=== PATIENT | male | born 1945 | race Caucasian/White ===

== ENCOUNTER 2017-10-10 10:11 | Emergency (ER) | payer MEDICARE, MEDICAID ==
[~2017-10-10] VITALS: Ht 170.2 cm; Wt 82.1 kg
[2017-10-10] MEDS ORDERED: SODIUM CHLORIDE 0.9% 1,000 ML IV ONE (10:43)
[2017-10-10] MEDS ORDERED: PROMETHAZINE HCL 25 MG/ML 1ML IV PRN (10:45)
[2017-10-10] MEDS ORDERED: HYDROmorphone HCL 2 MG/ML VL IV ONE (10:45)
[2017-10-10] MEDS ORDERED: DILTIAZEM HCL 25 MG/5 ML VIAL IV ONE ×2 (11:00→16:15)
[2017-10-10 11:03] LABS: Basophils # (auto) 0 uL; Eosinophils # (auto) 0.1 uL; Hemoglobin 8.2 g/dL (13.5-17.5); Lymphocytes # (auto) 1.3 uL; Mean Platelet Volume 6.6 fL (6.9-10.8); Monocytes # (auto) 0.6 uL; Neutrophils # (auto) 4.3 uL; White Blood Cell 6.3 10^3/uL (4.4-10.8)
[2017-10-10 11:05] LABS: Basophils % (auto) 0.5 % (0.0-2.0); Eosinophils % (auto) 1.5 % (0.0-7.0); Hematocrit 26.5 % (41.0-53.0); Lymphocytes % (auto) 20.9 % (10.0-50.0); Mean Corpuscular Hemoglobin 22.1 pg (28.0-32.0); Mean Corpuscular Hgb Conc. 31.1 g/dL (32.0-36.0); Mean Corpuscular Volume 71.2 fL (80.0-100.0); Monocytes % (auto) 9.6 % (0.0-12.0); Neutrophils % (auto) 67.5 % (37.0-80.0); Platelet Count (auto) 319 10^3/uL (140-450)
[2017-10-10 11:08] LABS: Red Cell Distribution Width 20.8 % (11.8-14.3)
[2017-10-10 11:17] LABS: INR 1.15 (0.9-1.15); Partial Thromboplastin Time 30.2 sec (22.64-33.71); Prothrombin Time 12.6 sec (9.37-12.3)
[2017-10-10 11:22] LABS: Albumin 2.2 g/dL (3.4-5.0); BUN/Creatinine Ratio 22.9; Bilirubin, Total 0.2 mg/dL (0.2-1.0); Calcium 7.6 mg/dL (8.5-10.1); Magnesium 1.6 mg/dL (1.6-2.6); Potassium 4.6 mmol/L (3.5-5.1); Total Protein 5.8 g/dL (6.4-8.2)
[2017-10-10 13:13] LABS: Anisocytosis Slight; Ovalocytes FEW; Platelet Estimate Adequate; Stomatocytes Few
[2017-10-10] MEDS ORDERED: SODIUM CHLORIDE 0.9% 1,000 ML IV SCH (17:48)
[2017-10-10] MEDS ORDERED: IPRATROPIUM BROM 0.5 MG/2.5ML INH SOL NEB SCH (18:00)
[2017-10-10] MEDS ORDERED: HYOSCYAMINE SULF 0.125 MG TAB PO PRN (18:00)
[2017-10-10] MEDS ORDERED: DOCUSATE SOD 100 MG CAP PO PRN (18:00)
[2017-10-10] MEDS ORDERED: HYDROmorphone HCL 2 MG/ML VL IV PRN (18:00)
[2017-10-10] MEDS ORDERED: ALBUTEROL SULF 2.5 MG/0.5ML(0.5%) NEB SOLN NEB SCH (18:00)
[2017-10-10] MEDS ORDERED: TORSEMIDE 20 MG TAB PO SCH (18:00)
[2017-10-10] MEDS ORDERED: NITROGLYCERIN 0.4 MG SL TAB SL PRN (18:00)
[2017-10-10] MEDS ORDERED: TAMSULOSIN HYDROCHLORIDE 0.4 MG CAP PO SCH (18:00)
[2017-10-10] MEDS ORDERED: ALPRAZolam 0.25 MG TAB PO PRN (18:00)
[2017-10-10] MEDS ORDERED: ONDANSETRON HCL 4 MG/2 ML VIAL IV PRN (18:00)
[2017-10-10] MEDS ORDERED: TEMAZEPAM 15 MG CAP PO PRN (18:00)
[2017-10-10] MEDS ORDERED: KETOROLAC TROMETH 30 MG/ML 1ML VIAL IV PRN (18:15)
[2017-10-10] MEDS ORDERED: BACLOFEN 10 MG TAB PO PRN (18:15)
[2017-10-10 19:07] VITALS: BP 137/68
[2017-10-10] MEDS ORDERED: busPIRone HCL 10 MG TAB PO SCH (22:00)
[2017-10-10] MEDS ORDERED: FAMOTIDINE 20 MG TAB PO SCH (22:00)
[2017-10-10] MEDS ORDERED: BUDESONIDE (INHALATION) 0.5 MG/2 ML NEB NEB SCH (22:00)
[2017-10-10] MEDS ORDERED: VENLAFAXINE HCL 37.5MG TABLET PO SCH (22:00)
[2017-10-10] MEDS ORDERED: MORPHINE SULF 30 mg ER tab PO SCH (22:00)
[2017-10-10] MEDS ORDERED: COLCHICINE 0.6 MG CAP PO SCH (22:00)
[2017-10-10] MEDS ORDERED: DICYCLOMINE HCL 10 MG CAP PO SCH (22:00)
[2017-10-10] MEDS ORDERED: PANTOPRAZOLE 40 MG TAB PO SCH (22:00)
[2017-10-11] MEDS ORDERED: MULTIPLE VITAMIN TAB PO SCH (10:00)
[2017-10-11] MEDS ORDERED: POTASSIUM CHL 20 Meq TABLET PO SCH (10:00)
== END 2017-10-10 20:35 | disposition left against medical advice (07) ==
LOC: ER 10:11 → TELE 10:12 → UNDOADMIN 10:12 → ER 20:35
DX: K57.30 Diverticulosis of large intestine without perforation or abscess without bleeding (principal); I47.1 Supraventricular tachycardia; D50.8 Other iron deficiency anemias; J45.909 Unspecified asthma, uncomplicated; E11.21 Type 2 diabetes mellitus with diabetic nephropathy; I25.810 Atherosclerosis of coronary artery bypass graft(s) without angina pectoris; I25.2 Old myocardial infarction; F17.200 Nicotine dependence, unspecified, uncomplicated; E43 Unspecified severe protein-calorie malnutrition; Z68.28 Body mass index [BMI] 28.0-28.9, adult; Z88.6 Allergy status to analgesic agent
CPT/HCPCS: 36415; 71020; 74176; 80053; 83690; 83735; 84443; 84484; 85025; 85610; 85730; 93005; 94761; 96361; 96374; 96375; 99285; J1170; J2550; J7030

== ENCOUNTER 2017-11-28 23:38 | Inpatient (IN) | payer MEDICARE, MEDICAID ==
[~2017-11-28] VITALS: Ht 177.8 cm; Wt 82.0 kg
[2017-11-28] MEDS: MIDAZOLAM DRIP 50 mg/50mL 50 ML IV SCH (23:56)
[2017-11-29] VITALS (37 sets, daily range): BP systolic 84–128; BP diastolic 48–88
[2017-11-29] MEDS ORDERED: PROPOFOL 100 ML IV ONE (00:04)
[2017-11-29] MEDS: PROPOFOL 100 ML IV SCH (00:07)
[2017-11-29 00:23] LABS: Basophils # (auto) 0 uL; Basophils % (auto) 0.3 % (0.0-2.0); Eosinophils # (auto) 0.1 uL; Hemoglobin 9.5 g/dL (13.5-17.5); Mean Corpuscular Hgb Conc. 29.8 g/dL (32.0-36.0); Nucleated Red Blood Cells % 0.1 %
[2017-11-29 00:24] LABS: Eosinophils % (auto) 1.1 % (0.0-7.0); Hematocrit 31.8 % (41.0-53.0); Lymphocytes # (auto) 3.6 uL; Mean Corpuscular Hemoglobin 22.2 pg (28.0-32.0); Mean Corpuscular Volume 74.4 fL (80.0-100.0); Monocytes # (auto) 0.8 uL; Monocytes % (auto) 7.3 % (0.0-12.0); Neutrophils # (auto) 5.9 uL; Neutrophils % (auto) 56.3 % (37.0-80.0); Platelet Count (auto) 535 10^3/uL (140-450); Red Blood Cells 4.27 10^6/uL (4.5-5.90); White Blood Cell 10.4 10^3/uL (4.4-10.8)
[2017-11-29] MEDS ORDERED: ETOMIDATE (2MG/ML) 20ML VIAL IV ONE (00:30)
[2017-11-29] MEDS ORDERED: SUCCINYLCHOLINE CHLORIDE 20 MG/ML 10ML VIAL IV ONE (00:30)
[2017-11-29] MEDS ORDERED: ROCURONIUM 10MG/ML 10ML VIAL IV ONE (00:45)
[2017-11-29 00:48] LABS: Albumin 1.9 g/dL (3.4-5.0); BUN/Creatinine Ratio 21.3; Calcium 7.4 mg/dL (8.5-10.1); Magnesium 1.7 mg/dL (1.6-2.6); Potassium 4.5 mmol/L (3.5-5.1)
[2017-11-29 00:53] LABS: Bilirubin, Total 0.4 mg/dL (0.2-1.0); Lactic Acid w/Reflex 3.9 mmol/L (0.4-2.0); Red Cell Distribution Width 21.2 % (11.8-14.3); Total Protein 6.2 g/dL (6.4-8.2)
[2017-11-29] MEDS ORDERED: LORazepam 2MG/ML-1ML VIAL IV ONE (01:45)
[2017-11-29] MEDS ORDERED: MORPHINE SULFATE 4 MG/ML SYR/VIAL IV ONE (01:45)
[2017-11-29] MEDS ORDERED: VANCOMYCIN 1GM/250ML 250 ML IV ONE (03:00)
[2017-11-29] MEDS ORDERED: cefTRIAXone 1GM/10ml IVPUSH 10 ML IV ONE (03:00)
[2017-11-29] MEDS ORDERED: FUROSEMIDE 20 MG/2 ML VIAL IV ONE (04:00)
[2017-11-29 04:17] LABS: Urine Bacteria NONE SEEN /hpf (None Seen); Urine Blood Negative /uL (Negative); Urine Mucus FEW (None Seen); Urine Specific Gravity 1.022 (1.001-1.035); Urine WBC 2 /hpf (0 - 3)
[2017-11-29] MEDS ORDERED: NITROGLYCERIN 0.4 MG SL TAB SL PRN (04:30)
[2017-11-29] MEDS ORDERED: MORPHINE SULFATE 4 MG/ML SYR/VIAL IV PRN (04:30)
[2017-11-29] MEDS ORDERED: VANCOMYCIN PER PHARMACY 0 MG IV SCH (06:15)
[2017-11-29] MEDS ORDERED: methylPREDNISolone SOD SUCC 125 MG/2 ML VL IV ONE (06:15)
[2017-11-29] MEDS: PANTOPRAZOLE 40 MG/10 ML VIAL IV SCH ×2 (09:58→10:27)
[2017-11-29] MEDS ORDERED: ENOXAPARIN SOD 30 MG/0.3 ML SYRINGE SC SCH (10:00)
[2017-11-29] MEDS: VANCOMYCIN 1,250 MG in D5W 5% 250 ML IV SCH (10:40)
[2017-11-29] MEDS ORDERED: HEPARIN DRIP/D5W 100UNITS/ML 250 ML IV SCH (10:48)
[2017-11-29] MEDS ORDERED: HEPARIN SODIUM (PORCINE) 5000 UNITS/ML 1ML VIAL IV ONE (11:00)
[2017-11-29 11:23] LABS: Basophils # (auto) 0 uL; Basophils % (auto) 0.2 % (0.0-2.0); Eosinophils # (auto) 0 uL; Lymphocytes # (auto) 0.5 uL; Monocytes # (auto) 0.1 uL; Neutrophils # (auto) 2.5 uL; Red Cell Distribution Width 21.2 % (11.8-14.3); White Blood Cell 3.1 10^3/uL (4.4-10.8)
[2017-11-29 11:25] LABS: Eosinophils % (auto) 0.2 % (0.0-7.0); Hematocrit 24.6 % (41.0-53.0); Hemoglobin 7.6 g/dL (13.5-17.5); Lymphocytes % (auto) 17.4 % (10.0-50.0); Mean Corpuscular Hemoglobin 21.9 pg (28.0-32.0); Mean Corpuscular Hgb Conc. 30.7 g/dL (32.0-36.0); Monocytes % (auto) 3.2 % (0.0-12.0); Platelet Count (auto) 320 10^3/uL (140-450); Red Blood Cells 3.45 10^6/uL (4.5-5.90)
[2017-11-29 11:34] LABS: Mean Corpuscular Volume 71.4 fL (80.0-100.0)
[2017-11-29 11:43] LABS: Albumin 1.6 g/dL (3.4-5.0); BUN/Creatinine Ratio 22.5; Bilirubin, Total 0.3 mg/dL (0.2-1.0); Calcium 7.1 mg/dL (8.5-10.1); INR 1.18 (0.9-1.15); Partial Thromboplastin Time 33.4 sec (22.64-33.71); Potassium 3.7 mmol/L (3.5-5.1); Prothrombin Time 12.9 sec (9.37-12.3); Total Protein 5.1 g/dL (6.4-8.2)
[2017-11-29] MEDS: HEPARIN DRIP/D5W 100UNITS/ML 250 ML IV SCH (12:45)
[2017-11-29] MEDS: PIPERACILLIN-TAZOB 3.375GM 50 ML IV SCH ×3 (13:19→23:43)
[2017-11-29] MEDS: FUROSEMIDE 40 MG/4 ML VIAL IV SCH (13:21)
[2017-11-29] MEDS ORDERED: MIDAZOLAM DRIP 50 mg/50mL 50 ML IV ONE (14:42)
[2017-11-29 17:52] LABS: Basophils # (auto) 0 uL; Basophils % (auto) 0.1 % (0.0-2.0); Eosinophils # (auto) 0 uL; Hemoglobin 8.6 g/dL (13.5-17.5); Mean Corpuscular Volume 71.3 fL (80.0-100.0); Monocytes # (auto) 0.1 uL; White Blood Cell 3.3 10^3/uL (4.4-10.8)
[2017-11-29 17:54] LABS: Hematocrit 27.8 % (41.0-53.0); Lymphocytes % (auto) 28.8 % (10.0-50.0); Mean Corpuscular Hemoglobin 22.2 pg (28.0-32.0); Mean Corpuscular Hgb Conc. 31.1 g/dL (32.0-36.0); Monocytes % (auto) 3.5 % (0.0-12.0); Neutrophils # (auto) 2.2 uL; Neutrophils % (auto) 67.6 % (37.0-80.0); Platelet Count (auto) 409 10^3/uL (140-450)
[2017-11-29 17:59] LABS: Red Cell Distribution Width 20.5 % (11.8-14.3)
[2017-11-29 18:12] LABS: Albumin 1.7 g/dL (3.4-5.0); BUN/Creatinine Ratio 19.7; Calcium 7.5 mg/dL (8.5-10.1); Potassium 3.5 mmol/L (3.5-5.1)
[2017-11-29 18:15] LABS: Bilirubin, Total 0.3 mg/dL (0.2-1.0); Total Protein 5.7 g/dL (6.4-8.2)
[2017-11-29] MEDS: MIDAZOLAM DRIP 50 mg/50mL 50 ML IV SCH (18:50)
[2017-11-29] MEDS: ALBUTEROL SULF 2.5 MG/0.5ML(0.5%) NEB SOLN NEB SCH (19:15)
[2017-11-29] MEDS: IPRATROPIUM BROM 0.5 MG/2.5ML INH SOL NEB SCH (19:16)
[2017-11-29 20:44] LABS: INR 1.16 (0.9-1.15); Prothrombin Time 12.7 sec (9.37-12.3)
[2017-11-29] MEDS ORDERED: NOREPINEPHRINE 8 MG/250ML KIT 250 ML IV ONE (22:59)
[2017-11-29] MEDS: NOREPINEPHRINE 8 MG/250ML KIT 250 ML IV SCH ×2 (23:12→23:15)
[2017-11-30] VITALS (102 sets, daily range): BP systolic 84–140; BP diastolic 38–102
[2017-11-30] MEDS: PROPOFOL 100 ML IV SCH ×2 (00:29→08:33)
[2017-11-30] MEDS: ALBUTEROL SULF 2.5 MG/0.5ML(0.5%) NEB SOLN NEB SCH ×4 (00:39→18:08)
[2017-11-30] MEDS: IPRATROPIUM BROM 0.5 MG/2.5ML INH SOL NEB SCH ×4 (00:39→18:08)
[2017-11-30] MEDS ORDERED: AMIODARONE HCL 900 MG IV ONE (01:38)
[2017-11-30] MEDS ORDERED: AMIODARONE HCL (50 MG/ ML) 3 ML VIAL IV ONE (01:38)
[2017-11-30] MEDS ORDERED: AMIODARONE HCL 900 MG in DEXTROSE 500 ML IV SCH ×2 (01:49→07:49)
[2017-11-30 02:29] LABS: Basophils # (auto) 0 uL; Basophils % (auto) 0.2 % (0.0-2.0); Eosinophils # (auto) 0 uL; Eosinophils % (auto) 0.1 % (0.0-7.0); Hematocrit 28.9 % (41.0-53.0); Monocytes # (auto) 0.8 uL; Nucleated Red Blood Cells % 0.1 %; Red Blood Cells 3.84 10^6/uL (4.5-5.90); White Blood Cell 8.1 10^3/uL (4.4-10.8)
[2017-11-30 02:31] LABS: Hemoglobin 8.6 g/dL (13.5-17.5); Lymphocytes # (auto) 2.1 uL; Lymphocytes % (auto) 26.2 % (10.0-50.0); Mean Corpuscular Hemoglobin 22.3 pg (28.0-32.0); Mean Corpuscular Hgb Conc. 29.6 g/dL (32.0-36.0); Mean Corpuscular Volume 75.3 fL (80.0-100.0); Monocytes % (auto) 9.7 % (0.0-12.0); Neutrophils # (auto) 5.2 uL; Neutrophils % (auto) 63.8 % (37.0-80.0); Platelet Count (auto) 465 10^3/uL (140-450)
[2017-11-30 02:40] LABS: Red Cell Distribution Width 21.6 % (11.8-14.3)
[2017-11-30 02:48] LABS: Albumin 1.4 g/dL (3.4-5.0); Calcium 6.5 mg/dL (8.5-10.1); Potassium 3.3 mmol/L (3.5-5.1)
[2017-11-30 02:49] LABS: BUN/Creatinine Ratio 14.2
[2017-11-30 03:11] LABS: INR 3.48 (0.9-1.15)
[2017-11-30 03:19] LABS: Bilirubin, Total 0.3 mg/dL (0.2-1.0); Total Protein 4.8 g/dL (6.4-8.2)
[2017-11-30 04:17] LABS: Partial Thromboplastin Time > 170.00 sec (22.64-33.71)
[2017-11-30] MEDS: PIPERACILLIN-TAZOB 3.375GM 50 ML IV SCH ×3 (06:06→17:56)
[2017-11-30] MEDS: MIDAZOLAM DRIP 50 mg/50mL 50 ML IV SCH ×2 (08:00→14:24)
[2017-11-30] MEDS ORDERED: DEXTROSE (50%) 50ML SYRG IV PRN (08:45)
[2017-11-30] MEDS: VANCOMYCIN 1,250 MG in D5W 5% 250 ML IV SCH (10:00)
[2017-11-30] MEDS: FUROSEMIDE 40 MG/4 ML VIAL IV SCH (10:00)
[2017-11-30] MEDS: PANTOPRAZOLE 40 MG/10 ML VIAL IV SCH ×2 (10:00)
[2017-11-30] MEDS: HEPARIN DRIP/D5W 100UNITS/ML 250 ML IV SCH ×3 (10:51→17:00)
[2017-11-30 11:12] LABS: INR 1.16 (0.9-1.15); Partial Thromboplastin Time 36.1 sec (22.64-33.71); Prothrombin Time 12.7 sec (9.37-12.3)
[2017-11-30] MEDS: ACCU-CHEK COMFORT CURVE STRIP VI SCH ×2 (11:57→17:56)
[2017-11-30] MEDS: InsuLIN REG 1unit/0.01ml Soln (100units/ml) SC SCH ×2 (11:57→17:56)
[2017-11-30] MEDS: fentaNYL Drip 2500mCg/250mlNS 250 ML IV SCH (14:31)
[2017-11-30] MEDS ORDERED: methylPREDNISolone SOD SUCC 40 MG/ML VL IV ONE (14:45)
[2017-11-30] MEDS ORDERED: Diabetisource AC 1 Liter GT SCH (14:45)
[2017-11-30] MEDS ORDERED: WARFARIN SODIUM 5 MG TAB PO ONE (17:00)
[2017-11-30] MEDS: BUDESONIDE (INHALATION) 0.5 MG/2 ML NEB NEB SCH (18:09)
[2017-11-30] MEDS: methylPREDNISolone SOD SUCC 40 MG/ML VL IV SCH (22:19)
[2017-11-30] MEDS: NOREPINEPHRINE 8 MG/250ML KIT 250 ML IV SCH (23:12)
[2017-12-01] VITALS (106 sets, daily range): BP systolic 94–170; BP diastolic 36–100
[2017-12-01] MEDS: InsuLIN REG 1unit/0.01ml Soln (100units/ml) SC SCH ×5 (00:18→23:49)
[2017-12-01] MEDS: PIPERACILLIN-TAZOB 3.375GM 50 ML IV SCH ×5 (00:18→23:49)
[2017-12-01] MEDS: ACCU-CHEK COMFORT CURVE STRIP VI SCH ×5 (00:18→23:49)
[2017-12-01] MEDS: IPRATROPIUM BROM 0.5 MG/2.5ML INH SOL NEB SCH ×4 (00:26→19:12)
[2017-12-01] MEDS: ALBUTEROL SULF 2.5 MG/0.5ML(0.5%) NEB SOLN NEB SCH ×4 (00:26→19:12)
[2017-12-01] MEDS: BUDESONIDE (INHALATION) 0.5 MG/2 ML NEB NEB SCH ×2 (05:48→19:12)
[2017-12-01 06:08] LABS: Basophils # (auto) 0 uL; Eosinophils # (auto) 0 uL; Hemoglobin 8.6 g/dL (13.5-17.5); Monocytes # (auto) 0.4 uL; Neutrophils # (auto) 4.8 uL
[2017-12-01 06:10] LABS: Basophils % (auto) 0.3 % (0.0-2.0); Hematocrit 27.4 % (41.0-53.0); Lymphocytes % (auto) 15.9 % (10.0-50.0); Mean Corpuscular Hemoglobin 22.4 pg (28.0-32.0); Mean Corpuscular Hgb Conc. 31.3 g/dL (32.0-36.0); Mean Corpuscular Volume 71.6 fL (80.0-100.0); Monocytes % (auto) 6.8 % (0.0-12.0); Platelet Count (auto) 388 10^3/uL (140-450); Red Blood Cells 3.83 10^6/uL (4.5-5.90); White Blood Cell 6.2 10^3/uL (4.4-10.8)
[2017-12-01 06:18] LABS: Red Cell Distribution Width 21.1 % (11.8-14.3)
[2017-12-01 06:23] LABS: Albumin 1.7 g/dL (3.4-5.0); BUN/Creatinine Ratio 13.9; Calcium 7.6 mg/dL (8.5-10.1); Potassium 3.1 mmol/L (3.5-5.1)
[2017-12-01 06:25] LABS: Bilirubin, Total 0.3 mg/dL (0.2-1.0); Total Protein 5.8 g/dL (6.4-8.2)
[2017-12-01 06:28] LABS: INR 1.17 (0.9-1.15); Prothrombin Time 12.8 sec (9.37-12.3)
[2017-12-01] MEDS: HEPARIN DRIP/D5W 100UNITS/ML 250 ML IV SCH (08:29)
[2017-12-01] MEDS: fentaNYL Drip 2500mCg/250mlNS 250 ML IV SCH (08:30)
[2017-12-01] MEDS: MIDAZOLAM DRIP 50 mg/50mL 50 ML IV SCH (08:34)
[2017-12-01] MEDS: PANTOPRAZOLE 40 MG/10 ML VIAL IV SCH (10:28)
[2017-12-01] MEDS: methylPREDNISolone SOD SUCC 40 MG/ML VL IV SCH ×2 (10:28→21:37)
[2017-12-01] MEDS: VANCOMYCIN 1,250 MG in D5W 5% 250 ML IV SCH (10:28)
[2017-12-01 12:11] LABS: INR 1.25 (0.9-1.15); Partial Thromboplastin Time 69.3 sec (22.64-33.71); Prothrombin Time 13.7 sec (9.37-12.3)
[2017-12-01] MEDS ORDERED: POTASSIUM CHL 10% (20 MEQ/15ML) 15ml ORAL SOLN GT ONE (15:30)
[2017-12-01] MEDS ORDERED: WARFARIN SODIUM 5 MG TAB PO ONE (17:00)
[2017-12-01] MEDS ORDERED: DILTIAZEM HCL 25 MG/5 ML VIAL IV ONE ×2 (20:54→21:00)
[2017-12-01] MEDS: NOREPINEPHRINE 8 MG/250ML KIT 250 ML IV SCH (23:12)
[2017-12-02] VITALS (97 sets, daily range): BP systolic 59–181; BP diastolic 31–118
[2017-12-02] MEDS: ALBUTEROL SULF 2.5 MG/0.5ML(0.5%) NEB SOLN NEB SCH ×4 (00:08→19:07)
[2017-12-02] MEDS: IPRATROPIUM BROM 0.5 MG/2.5ML INH SOL NEB SCH ×4 (00:08→19:07)
[2017-12-02] MEDS: PROPOFOL 100 ML IV SCH (00:29)
[2017-12-02 04:49] LABS: Eosinophils # (auto) 0 uL; Hemoglobin 9.5 g/dL (13.5-17.5); Mean Corpuscular Volume 70.6 fL (80.0-100.0)
[2017-12-02 04:51] LABS: Basophils # (auto) 0.3 uL; Basophils % (auto) 1.7 % (0.0-2.0); Hematocrit 30.2 % (41.0-53.0); Lymphocytes # (auto) 0.9 uL; Lymphocytes % (auto) 5.9 % (10.0-50.0); Mean Corpuscular Hemoglobin 22.2 pg (28.0-32.0); Mean Corpuscular Hgb Conc. 31.4 g/dL (32.0-36.0); Monocytes % (auto) 6.7 % (0.0-12.0); Neutrophils # (auto) 13.2 uL; Neutrophils % (auto) 85.7 % (37.0-80.0); Platelet Count (auto) 485 10^3/uL (140-450); Red Blood Cells 4.28 10^6/uL (4.5-5.90); Red Cell Distribution Width 21.2 % (11.8-14.3); White Blood Cell 15.3 10^3/uL (4.4-10.8)
[2017-12-02 05:00] LABS: Albumin 1.8 g/dL (3.4-5.0); BUN/Creatinine Ratio 15.4; Calcium 8.5 mg/dL (8.5-10.1); Potassium 3.5 mmol/L (3.5-5.1)
[2017-12-02 05:03] LABS: Bilirubin, Total 0.3 mg/dL (0.2-1.0); Total Protein 6.2 g/dL (6.4-8.2)
[2017-12-02] MEDS ORDERED: METOPROLOL TARTRATE 1MG/1ML-5ML VIAL IV ONE (05:03)
[2017-12-02 05:04] LABS: INR 1.2 (0.9-1.15); Prothrombin Time 13.1 sec (9.37-12.3)
[2017-12-02] MEDS: METOPROLOL TARTRATE 1MG/1ML-5ML VIAL IV SCH ×3 (05:07→18:44)
[2017-12-02] MEDS: InsuLIN REG 1unit/0.01ml Soln (100units/ml) SC SCH ×3 (06:00→17:34)
[2017-12-02] MEDS: PIPERACILLIN-TAZOB 3.375GM 50 ML IV SCH ×3 (06:00→17:34)
[2017-12-02] MEDS: ACCU-CHEK COMFORT CURVE STRIP VI SCH ×3 (06:00→17:34)
[2017-12-02] MEDS: NOREPINEPHRINE 8 MG/250ML KIT 250 ML IV SCH (06:45)
[2017-12-02] MEDS: BUDESONIDE (INHALATION) 0.5 MG/2 ML NEB NEB SCH ×2 (07:40→19:07)
[2017-12-02] MEDS ORDERED: VANCOMYCIN 1,250 MG in D5W 5% 250 ML IV SCH (10:00)
[2017-12-02] MEDS: PANTOPRAZOLE 40 MG/10 ML VIAL IV SCH (10:14)
[2017-12-02] MEDS: methylPREDNISolone SOD SUCC 40 MG/ML VL IV SCH ×2 (10:14→21:56)
[2017-12-02] MEDS: FREE WATER GT SCH ×3 (12:59→21:55)
[2017-12-02] MEDS: fentaNYL Drip 2500mCg/250mlNS 250 ML IV SCH (14:31)
[2017-12-02] MEDS ORDERED: WARFARIN SODIUM 5 MG TAB PO ONE (17:00)
[2017-12-03] VITALS (7 sets, daily range): BP systolic 83–141; BP diastolic 41–93
[2017-12-03] MEDS: InsuLIN REG 1unit/0.01ml Soln (100units/ml) SC SCH
[2017-12-03] MEDS: ACCU-CHEK COMFORT CURVE STRIP VI SCH
[2017-12-03] MEDS: PIPERACILLIN-TAZOB 3.375GM 50 ML IV SCH
[2017-12-03] MEDS: ALBUTEROL SULF 2.5 MG/0.5ML(0.5%) NEB SOLN NEB SCH (00:24)
[2017-12-03] MEDS: IPRATROPIUM BROM 0.5 MG/2.5ML INH SOL NEB SCH (00:24)
[2017-12-03] MEDS: PROPOFOL 100 ML IV SCH (00:29)
[2017-12-03] MEDS: MIDAZOLAM DRIP 50 mg/50mL 50 ML IV SCH (00:29)
[2017-12-03] MEDS: fentaNYL Drip 2500mCg/250mlNS 250 ML IV SCH (01:15)
[2017-12-03] MEDS ORDERED: VANCOMYCIN 1,250 MG in D5W 5% 250 ML IV SCH (02:00)
== END 2017-12-03 02:00 | disposition expired | DRG 871 ==
LOC: EDBD 23:38 → ER 23:42 → TELE 23:43 → ICU WEST 11-29 18:40
PROVIDERS: ADMIT Nurse Practitioner Family; ATTEND Internal Medicine
PROC: 02H633Z Insertion of Infusion Device into Right Atrium, Percutaneous Approach (ICD-10-PCS; 2017-11-28)
PROC: 5A1945Z Respiratory Ventilation, 24-96 Consecutive Hours (ICD-10-PCS; principal; 2017-11-29)
PROC: 0BH17EZ Insertion of Endotracheal Airway into Trachea, Via Natural or Artificial Opening (ICD-10-PCS; 2017-11-29)
DX: A41.9 Sepsis, unspecified organism (principal); I21.A1 Myocardial infarction type 2; G93.5 Compression of brain; I63.9 Cerebral infarction, unspecified; E43 Unspecified severe protein-calorie malnutrition; J96.01 Acute respiratory failure with hypoxia; R65.21 Severe sepsis with septic shock; I50.43 Acute on chronic combined systolic (congestive) and diastolic (congestive) heart failure; J18.9 Pneumonia, unspecified organism; D68.69 Other thrombophilia; E11.22 Type 2 diabetes mellitus with diabetic chronic kidney disease; J44.1 Chronic obstructive pulmonary disease with (acute) exacerbation; I13.0 Hypertensive heart and chronic kidney disease with heart failure and stage 1 through stage 4 chronic kidney disease, or unspecified chronic kidney disease; E87.1 Hypo-osmolality and hyponatremia; G96.0 Cerebrospinal fluid leak; J44.0 Chronic obstructive pulmonary disease with (acute) lower respiratory infection; Z66 Do not resuscitate; N18.3 Chronic kidney disease, stage 3 (moderate); D64.9 Anemia, unspecified; F17.210 Nicotine dependence, cigarettes, uncomplicated; F41.9 Anxiety disorder, unspecified; G89.29 Other chronic pain; M19.90 Unspecified osteoarthritis, unspecified site; I25.10 Atherosclerotic heart disease of native coronary artery without angina pectoris; I48.91 Unspecified atrial fibrillation; K21.9 Gastro-esophageal reflux disease without esophagitis; Z79.01 Long term (current) use of anticoagulants; Z82.49 Family history of ischemic heart disease and other diseases of the circulatory system; Z93.3 Colostomy status; Z95.1 Presence of aortocoronary bypass graft; Z95.5 Presence of coronary angioplasty implant and graft; Z68.25 Body mass index [BMI] 25.0-25.9, adult
CPT/HCPCS: 31500; 36415; 36600; 51702; 70450; 71010; 71045; 80053; 80202; 81001; 82805; 82962; 83036; 83605; 83735; 83880; 84484; 85025; 85610; 85730; 86850; 86900; 86901; 87040; 87081; 93005; 93306; 94002; 94003; 94640; 96365; 96375; C9113; J1815; J2250; J2543; J2704; J3010; J7060